=== PATIENT | female | born 1985 | race Two or more races ===

== ENCOUNTER 2022-01-24 00:28 | Observation (INO) | payer OTHER ==
[~2022-01-24] VITALS: Ht 167.6 cm; Wt 86.2 kg
[2022-01-24] MEDS ORDERED: BETAMETHASONE ACET/BETAMET 30 MG/5 ML VIAL IM NR (02:00)
[2022-01-24 05:27] LABS: CLARITY URINE CLEAR (CLEAR); COLOR URINE YELLOW (YELLOW); KETONES URINE TRACE (NEGATIVE); LEUKOCYTE ESTERASE URINE NEGATIVE (NEGATIVE); NITRITE URINE NEGATIVE (NEGATIVE); OCCULT BLOOD URINE NEGATIVE (NEGATIVE); PH URINE 6.5 (4.5-8.0); PROTEIN URINE NEGATIVE (NEGATIVE); SPECIFIC GRAVITY URINE 1.025 (1.005-1.030)
== END 2022-01-24 06:30 | disposition home or self-care (01) ==
LOC: 8 EST LDRP 00:28
PROVIDERS: ADMIT Obstetrics & Gynecology; ATTEND Obstetrics & Gynecology
DX: O62.9 Abnormality of forces of labor, unspecified (principal); O26.893 Other specified pregnancy related conditions, third trimester; R10.9 Unspecified abdominal pain; O09.523 Supervision of elderly multigravida, third trimester; Z3A.35 35 weeks gestation of pregnancy
CPT/HCPCS: 59025; 76805; 76817; 76818; 81003; 82731; 96372; G0378; J0702; 99281

== ENCOUNTER 2022-01-25 05:41 | Observation (INO) | payer OTHER ==
[~2022-01-25] VITALS: Ht 167.6 cm; Wt 90.7 kg
[2022-01-25] MEDS ORDERED: BETAMETHASONE ACET/BETAMET 30 MG/5 ML VIAL IM ONE (06:15)
== END 2022-01-25 06:30 | disposition home or self-care (01) ==
LOC: 8 EST LDRP 05:41
PROVIDERS: ADMIT Specialist; ATTEND Specialist
DX: O09.523 Supervision of elderly multigravida, third trimester (principal); Z3A.33 33 weeks gestation of pregnancy
CPT/HCPCS: 59025; 96372; G0378; J0702; 99281; G0379

== ENCOUNTER 2022-02-08 18:23 | Observation (INO) | payer OTHER ==
[~2022-02-08] VITALS: Ht 167.6 cm; Wt 90.7 kg
[2022-02-08 20:48] LABS: CLARITY URINE CLOUDY (CLEAR); COLOR URINE DARK YELLOW (YELLOW); KETONES URINE TRACE (NEGATIVE); LEUKOCYTE ESTERASE URINE 1+ (NEGATIVE); NITRITE URINE NEGATIVE (NEGATIVE); OCCULT BLOOD URINE NEGATIVE (NEGATIVE); PH URINE 5.5 (4.5-8.0); PROTEIN URINE TRACE (NEGATIVE); SPECIFIC GRAVITY URINE 1.026 (1.005-1.030)
[2022-02-08 20:54] LABS: BASOPHILS % 0.6 % (0.0-2.0); EOSINOPHILS % 1.3 % (0.0-5.0); HEMATOCRIT. 37.1 % (36.0-48.0); HEMOGLOBIN. 12.4 g/dL (12.0-16.0); LYMPHOCYTES % 19.6 % (20.0-50.0); MEAN CORPUSCULAR HEMOGLOBIN 30.5 pg (28.0-32.0); MEAN CORPUSCULAR VOLUME 91.1 fL (81.0-99.0); MEAN PLATELET VOLUME 8.5 fl (7.4-10.4); MONOCYTES % 8.1 % (2.0-8.0); NEUTROPHILS % 70.4 % (40.0-76.0); PLATELET 300 x1000/uL (130-400); RED BLOOD CELL COUNT 4.07 mill/uL (4.2-5.4); RED CELL DISTRIBUTION WIDTH 14.4 % (11.6-14.6)
[2022-02-08 21:02] LABS: CHLORIDE 107 mEq/L (98-107)
[2022-02-08 21:06] LABS: D-DIMER 0.84 mg/L FEU (<0.50); INR 0.9; PARTIAL THROMBOPLASTIN TIME 27.6 sec (23.4-31.0)
== END 2022-02-08 22:27 | disposition home or self-care (01) ==
LOC: 8 EST LDRP 18:23
PROVIDERS: ADMIT Obstetrics & Gynecology; ATTEND Obstetrics & Gynecology
DX: O26.893 Other specified pregnancy related conditions, third trimester (principal); R03.0 Elevated blood-pressure reading, without diagnosis of hypertension; R51.9 Headache, unspecified; Z3A.35 35 weeks gestation of pregnancy; Z79.899 Other long term (current) drug therapy
CPT/HCPCS: 36415; 59025; 76805; 76818; 80053; 81003; 84550; 85025; 85379; 85384; 85610; 85730; G0378; 99281